=== PATIENT | female | born 1955 | race Caucasian/White ===

== ENCOUNTER 2018-08-10 16:38 | Outpatient (REF) | payer BC, SELFPAY ==
[2018-08-10 20:50] LABS: HCT 49.7 % (36.0-46.0); HGB 16.5 g/dL (12.0-15.5); Mean Corp. HGB Concentration 33.2 g/dL (32.0-36.0); Mean Corpuscular Hemoglobin 32.2 pg (27.0-33.0); Mean Corpuscular Volume 97.1 fL (80-95); Mean Platelet Volume 10.4 fL (8.0-11.0); Platelet Count 361 x1000/uL (130-400); RBC 5.12 m/cumm (4.00-5.20); RBC Distribution Width 15.4 % (11.7-14.6); White Blood Cell Count 11.23 k/cumm (4.4-10.8)
[2018-08-10 21:14] LABS: Anion Gap 11.3 mmol/L (3-11); BUN 16 mg/dL (7-18); CO2 27.7 mmol/L (21.0-32.0); CREATININE 0.83 mg/dL (0.55-1.02); Calcium 9.8 mg/dL (8.5-10.1); Chloride 98 mmol/L (98-107); Glucose 112 mg/dL (70-100); Potassium 4.4 mmol/L (3.5-5.1); Sodium 137 mmol/L (136-145); TSH (W/Ref FT4) 1.81 uIU/mL (0.358-3.74)
== END 2018-08-10 16:58 ==
LOC: NCHCN 16:38
PROVIDERS: PCP Family Medicine; Visit Provider Family Medicine
DX: R42 Dizziness and giddiness (principal); I10 Essential (primary) hypertension; R51 Headache
CPT/HCPCS: 80048; 85027; 84443

== ENCOUNTER 2018-11-09 14:52 | Outpatient (REF) | payer BC, SELFPAY ==
[2018-11-09 21:08] LABS: HCT 48.6 % (36.0-46.0); HGB 16.5 g/dL (12.0-15.5); Mean Corpuscular Hemoglobin 33.4 pg (27.0-33.0); Mean Corpuscular Volume 98.4 fL (80-95); Mean Platelet Volume 10.4 fL (8.0-11.0); Platelet Count 334 x1000/uL (130-400); RBC 4.94 m/cumm (4.00-5.20); RBC Distribution Width 14.7 % (11.7-14.6); White Blood Cell Count 9.84 k/cumm (4.4-10.8)
[2018-11-09 21:36] LABS: ALT 102 U/L (12-78); AST 54 U/L (15-37); Albumin 4.3 g/dL (3.4-5.0); Alkaline Phosphatase 100 U/L (46-116); Anion Gap 12.7 mmol/L (3-11); BUN 14 mg/dL (7-18); Bilirubin, Total 0.4 mg/dL (0.2-1.0); CO2 28.3 mmol/L (21.0-32.0); CREATININE 1.27 mg/dL (0.55-1.02); Chloride 91 mmol/L (98-107); Estimated GFR 42.78 (mL/min/1.73m2); Glucose 168 mg/dL (70-100); Magnesium 1.5 mg/dL (1.8-2.4); Potassium 4.4 mmol/L (3.5-5.1); Sodium 132 mmol/L (136-145); Total Protein 8.1 g/dL (6.4-8.2)
== END 2018-11-09 15:12 ==
LOC: NCHCN 14:52
PROVIDERS: PCP Family Medicine; Visit Provider Family Medicine
DX: R00.0 Tachycardia, unspecified (principal); R42 Dizziness and giddiness; D75.1 Secondary polycythemia; E66.9 Obesity, unspecified; R06.83 Snoring
CPT/HCPCS: 80053; 85027; 83735

== ENCOUNTER 2019-05-10 14:22 | Outpatient (REF) | payer BC, SELFPAY ==
[2019-05-10 20:41] LABS: HCT 46.8 % (36.0-46.0); HGB 15.3 g/dL (12.0-15.5); Mean Corp. HGB Concentration 32.7 g/dL (32.0-36.0); Mean Corpuscular Hemoglobin 31.2 pg (27.0-33.0); Mean Corpuscular Volume 95.3 fL (80-95); Mean Platelet Volume 9.7 fL (8.0-11.0); Platelet Count 382 x1000/uL (130-400); RBC 4.91 m/cumm (4.00-5.20); RBC Distribution Width 13.7 % (11.7-14.6); White Blood Cell Count 8.78 k/cumm (4.4-10.8)
[2019-05-10 21:01] LABS: COMMENT (LAB VIEW ONLY) 35.48 mg/dL; Microalb ug/mg Crea 39.7 ug/mg Cr
[2019-05-10 21:24] LABS: ALT 27 U/L (14-59); AST 15 U/L (15-37); Albumin 4.2 g/dL (3.4-5.0); Alkaline Phosphatase 85 U/L (46-116); Anion Gap 10.2 mmol/L (3-11); BUN 13 mg/dL (7-18); Bilirubin, Total 0.4 mg/dL (0.2-1.0); CO2 30.8 mmol/L (21.0-32.0); CREATININE 0.68 mg/dL (0.55-1.02); Calcium 9.7 mg/dL (8.5-10.1); Chloride 95 mmol/L (98-107); Glucose 81 mg/dL (74-106); Potassium 4.1 mmol/L (3.5-5.1); Sodium 136 mmol/L (136-145); Total Protein 7.5 g/dL (6.4-8.2); Vitamin B12 404 pg/mL (193-986)
== END 2019-05-10 14:42 ==
LOC: NCHCN 14:22
PROVIDERS: PCP Family Medicine; Visit Provider Family Medicine
DX: D75.1 Secondary polycythemia (principal); E11.9 Type 2 diabetes mellitus without complications; G60.9 Hereditary and idiopathic neuropathy, unspecified; K76.0 Fatty (change of) liver, not elsewhere classified
CPT/HCPCS: 80053; 85027; 82043; 82570; 82607; 82746; 84443

== ENCOUNTER 2020-01-02 12:15 | Outpatient (REF) | payer BC, SELFPAY ==
[2020-01-02 20:43] LABS: HCT 44.2 % (36.0-46.0); HGB 14.2 g/dL (11.2-15.7); MCH 31.1 pg (27.0-33.0); MCHC 32.1 % (32.0-36.0); MCV 96.7 fL (80-95); MPV 9.6 fL (8.0-11.0); Platelet Count 366 10^3/uL (130-400); RBC 4.57 10^6/uL (3.93-5.22); RDW-SD 46.7 fL; WBC 7.53 10^3/uL (4.4-10.8)
[2020-01-02 21:14] LABS: Hemoglobin A1C 6.1 % (3.8-5.6)
[2020-01-02 21:22] LABS: ALT 30 U/L (14-59); AST 10 U/L (15-37); Alkaline Phosphatase 75 U/L (46-116); Anion Gap 8.7 mmol/L (3-11); BUN 15 mg/dL (7-18); Bilirubin, Total 0.4 mg/dL (0.2-1.0); CO2 29.3 mmol/L (21.0-32.0); CREATININE 0.69 mg/dL (0.55-1.02); Calcium 9.4 mg/dL (8.5-10.1); Calculated LDL 121 mg/dL (<100); Chloride 100 mmol/L (98-107); Cholesterol 202 mg/dL (<200); Glucose 87 mg/dL (74-106); HDL Cholesterol 51 mg/dL (40-60); Potassium 4.3 mmol/L (3.5-5.1); Sodium 138 mmol/L (136-145); Triglyceride 151 mg/dL (<150)
== END 2020-01-02 12:35 ==
LOC: NCHCN 12:15
PROVIDERS: PCP Family Medicine; Visit Provider Family Medicine
DX: E11.9 Type 2 diabetes mellitus without complications (principal); I10 Essential (primary) hypertension; D75.1 Secondary polycythemia; E78.5 Hyperlipidemia, unspecified
CPT/HCPCS: 80053; 80061; 85027; 83036

== ENCOUNTER 2021-03-08 15:36 | Outpatient (REF) | payer BC, SELFPAY ==
[2021-03-08 22:34] LABS: Calculated LDL 141 mg/dL (<100); Cholesterol 214 mg/dL (<200); HDL Cholesterol 54 mg/dL (40-60); Triglyceride 99 mg/dL (<150)
== END 2021-03-08 15:37 | disposition home or self-care (01) ==
LOC: NCHCN 15:36
PROVIDERS: PCP Family Medicine; Visit Provider Nurse Practitioner Family
DX: E78.5 Hyperlipidemia, unspecified (principal)
CPT/HCPCS: 80061

== ENCOUNTER 2021-10-22 15:26 | Outpatient (REF) | payer BC, SELFPAY ==
[2021-10-22 20:30] LABS: COMMENT (LAB VIEW ONLY) 51.33 mg/dL
[2021-10-22 20:35] LABS: Microalb ug/mg Crea 107.5 ug/mg Cr
== END 2021-10-22 15:27 | disposition home or self-care (01) ==
LOC: NCHCN 15:26
PROVIDERS: PCP Family Medicine; Visit Provider Family Medicine
DX: E11.9 Type 2 diabetes mellitus without complications (principal)
CPT/HCPCS: 82043; 82570

== ENCOUNTER 2022-04-04 13:44 | Outpatient (REF) | payer MEDICARE, BC, SELFPAY ==
[2022-04-04 15:26] LABS: ALT 22 U/L (14-59); AST 18 U/L (15-37); Albumin 4.2 g/dL (3.4-5.0); Alkaline Phosphatase 83 U/L (46-116); Anion Gap 6.3 mmol/L (3-11); BUN 20 mg/dL (7-18); Bilirubin, Total 0.5 mg/dL (0.2-1.0); CO2 31.7 mmol/L (21.0-32.0); CREATININE 0.8 mg/dL (0.55-1.02); Calcium 9.7 mg/dL (8.5-10.1); Calculated LDL 138 mg/dL (<100); Chloride 90 mmol/L (98-107); Cholesterol 209 mg/dL (<200); Estimated GFR 81.72 (mL/min/1.73m2); Glucose 139 mg/dL (74-106); HDL Cholesterol 57 mg/dL (40-60); Potassium 4.1 mmol/L (3.5-5.1); Sodium 128 mmol/L (136-145); Total Protein 8.1 g/dL (6.4-8.2); Triglyceride 72 mg/dL (<150)
== END 2022-04-04 13:45 | disposition home or self-care (01) ==
LOC: NCHCN 13:44
PROVIDERS: PCP Family Medicine; Visit Provider Nurse Practitioner Family
DX: E11.9 Type 2 diabetes mellitus without complications (principal); E78.5 Hyperlipidemia, unspecified; I10 Essential (primary) hypertension
CPT/HCPCS: 80053; 80061

== ENCOUNTER 2022-04-06 17:11 | Outpatient (REF) | payer MEDICARE, BC, SELFPAY ==
[2022-04-06 17:36] LABS: Anion Gap 6.8 mmol/L (3-11); BUN 16 mg/dL (7-18); CO2 31.2 mmol/L (21.0-32.0); CREATININE 0.8 mg/dL (0.55-1.02); Calcium 9.3 mg/dL (8.5-10.1); Chloride 93 mmol/L (98-107); Estimated GFR 81.72 (mL/min/1.73m2); Glucose 123 mg/dL (74-106); Potassium 3.9 mmol/L (3.5-5.1); Sodium 131 mmol/L (136-145)
== END 2022-04-06 17:12 | disposition home or self-care (01) ==
LOC: NCHCN 17:11
PROVIDERS: PCP Family Medicine; Visit Provider Nurse Practitioner Family
DX: E87.1 Hypo-osmolality and hyponatremia (principal)
CPT/HCPCS: 80048

== ENCOUNTER 2022-04-20 15:03 | Outpatient (REF) | payer MEDICARE, BC, SELFPAY ==
[2022-04-20 14:36] LABS: Sodium 135 mmol/L (136-145)
== END 2022-04-20 15:04 | disposition home or self-care (01) ==
LOC: NCHCN 15:03
PROVIDERS: PCP Family Medicine; Visit Provider Nurse Practitioner Family
DX: E87.1 Hypo-osmolality and hyponatremia (principal)
CPT/HCPCS: 84295

== ENCOUNTER 2022-12-06 10:55 | Outpatient (REF) | payer MEDICARE, BC, SELFPAY ==
[2022-12-06 16:21] LABS: COMMENT (LAB VIEW ONLY) 94.68 mg/dL; Microalb ug/mg Crea 51.5 ug/mg Cr
== END 2022-12-06 10:56 | disposition home or self-care (01) ==
LOC: NCHCN 10:55
PROVIDERS: PCP Family Medicine; Visit Provider Family Medicine
DX: E11.9 Type 2 diabetes mellitus without complications (principal)
CPT/HCPCS: 82043; 82570

== ENCOUNTER 2024-01-05 14:39 | Outpatient (REF) | payer MEDICARE, BC, SELFPAY ==
[2024-01-05 15:19] LABS: COMMENT (LAB VIEW ONLY) 50.72 mg/dL
[2024-01-05 15:20] LABS: Microalb ug/mg Crea 129.7 ug/mg Cr
== END 2024-01-05 14:40 | disposition home or self-care (01) ==
LOC: NCHCN 14:39
PROVIDERS: PCP Family Medicine; Visit Provider Family Medicine
DX: E11.9 Type 2 diabetes mellitus without complications (principal)
CPT/HCPCS: 82043; 82570